=== PATIENT | female | born 1990 | race Asian ===

== ENCOUNTER 2019-11-18 20:13 | Emergency (ER) | payer BC ==
--- NOTE | 2019-11-18 21:22 | EDM.PDOC ---
ED HPI GENERAL MEDICAL PROBLEM - General Chief Complaint: General Stated Complaint: RIB PAIN Time Seen by Provider: 11/18/19 21:07 Source of Information: Reports: Patient, Significant Other (Boyfriend) History Limitations: Reports: No Limitations - History of Present Illness INITIAL COMMENTS - FREE TEXT/NARRATIVE: Ms. 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 She has had rhinorrhea, but no nasal congestion. No recent fever. No ear pain. She has been taking Mucinex without relief of symptoms. She now presents to the ED stating that she developed right rib pain today. She indicates her lateral right ribs, a few inches below her right axilla. She states that the pain is present all the time, but made worse with breathing or coughing. No prior similar symptoms. The patient states that she took 600 mg of ibuprofen around 13:30 today, which did not help much. The patient does not have a PCP. Her Racking Technician is Dr. Lisa Diana. She received an influenza vaccine this season. 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: Other (see below) Other Treatments BENDING ROLL OPERATOR: mucinex Right Chest Pain Score (Numeric/FACES): 8 - Related Data Allergies Allergy/AdvReac Type Severity Reaction Status Date / Time No Known Allergies Allergy Verified 11/18/19 20:48 Home Meds: Home Meds Orphenadrine [Norflex] 1 tab PO Q12H PRN #14 tab.er 11/19/19 [Rx] Past Medical History Musculoskeletal History: Reports: Other (See Below) (Scoliosis) - Past Surgical History HEENT Surgical History: Reports: Oral Surgery (wisdom teeth extraction) Social & Family History - Tobacco Use Smoking Status *Q: Never Smoker - Caffeine Use Caffeine Use: Reports: Soda - Alcohol Use Alcohol Use History: Yes Alcohol Use Frequency: Rarely - Recreational Drug Use Recreational Drug Use: No - Living Situation & Occupation Living situation: Reports: Single, with Significant Other (Boyfriend) 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 ED EXAM, GENERAL - Physical Exam Exam: See Below Exam Limited By: No Limitations General Appearance: Alert, WD/WN, No Apparent Distress Eye Exam: Bilateral Eye: EOMI, Normal Inspection Ears: Normal External Exam, Hearing Grossly Normal Nose: Normal Inspection Throat/Mouth: Normal Inspection, Normal Lips, Normal Voice, No Airway Compromise Head: Atraumatic, Normocephalic Neck: Normal Inspection, Full Range of Motion Respiratory/Chest: No Respiratory Distress, Lungs Clear, Normal Breath Sounds, No Accessory Muscle Use, Other (Reproducible tenderness to palpation of the 7th or 8th intercostal muscles, right midaxillary line). No: Decreased Breath Sounds, Crackles, Rhonchi, Wheezing, Stridor, Pleural Rub, Prolonged Expiration Cardiovascular: Normal Peripheral Pulses, Regular Rate, Rhythm, No Edema, No Gallop, No JVD, No Murmur, No Rub Peripheral Pulses: 4+: Radial (L), Radial (R) GI/Abdominal: Normal Bowel Sounds, Soft, Non-Tender, No Organomegaly, No Distention, No Abnormal Bruit, No Mass (Female) Exam: Deferred Rectal (Female) Exam: Deferred Back Exam: Normal Inspection, Full Range of Motion, NT Extremities: Normal Inspection, Normal Range of Motion, No Pedal Edema, Normal Capillary Refill Neurological: Alert, Oriented, Normal Cognition, No Motor/Sensory Deficits Psychiatric: Normal Affect Skin Exam: Warm, Dry, Intact, Normal Color, No Rash Course - Vital Signs Last Recorded V/S: Last Vital Signs Temp 37.1 C 11/18/19 20:43 Pulse 86 11/18/19 20:43 Resp 20 11/18/19 20:43 BP 129/90 11/18/19 20:43 Pulse Ox 99 11/18/19 20:43 - Orders/Labs/Meds Orders: Active Orders 24 hr Category Date Time Status Chest 2V [CR] Stat Exams 11/18/19 21:17 Taken Meds: Medications Discontinued Medications Generic Name Dose Route Start Last Admin Trade Name Freq PRN Reason Stop Dose Admin Orphenadrine Citrate 100 mg 11/19/19 00:19 11/19/19 00:28 Norflex PO 11/19/19 00:20 100 mg ONETIME STA Administration - Re-Assessments/Exams Free Text/Narrative Re-Assessment/Exam: 11/18/19 21:18 By both history and physical examination, the patient is suffering from right intercostal muscle spasm and pain, however, because of the patient's week long history of a cough, I have ordered a chest x-ray, not only to look for an infiltrate, but to rule out a pneumothorax. My suspicion is very low. 11/18/19 22:19 2-view chest radiograph reviewed. The cardiac silhouette is within normal limits. No pulmonary vascular congestion. No pleural effusions. No focal infiltrate. No pneumothorax. Significant thoracic scoliosis noted. Formal read per the Radiologist pending. 11/19/19 00:18 X-ray results discussed with the patient and her boyfriend. As above, I suspect that the patient is suffering from an intercostal muscle spasm due to her cough , which is likely due to a viral URI. I can't help her with her cough, but I can treat the muscle spasm with Norflex and ibuprofen. Departure - Departure Time of Disposition: 00:18 Disposition: Home, Self-Care 01 Condition: Good Clinical Impression: Intercostal muscle strain, Viral URI with cough - Discharge Information *PRESCRIPTION DRUG MONITORING PROGRAM REVIEWED*: Not Applicable *COPY OF PRESCRIPTION DRUG MONITORING REPORT IN PATIENT SHANE: Not Applicable Prescriptions: Orphenadrine [Norflex] 1 tab PO Q12H PRN #14 tab.er PRN Reason: Muscle Spasm Instructions: Muscle Strain, [id number], Upper Respiratory Infection, Adult, [id number] Referrals: PCP,None [Primary Care Provider] - Forms: ED Department Discharge, ED Return to Work/School Form Additional Instructions: You were seen in the emergency room for right rib pain after coughing for more than a week. Workup in the ER included a chest x-ray, which was unremarkable. You do not have pneumonia or a collapsed lung. Based on your history, physical exam, and ER chest x-ray, the cause of your right rib pain is most likely due to intercostal muscle spasm. You have been started on the muscle relaxant Norflex, and a prescription for Norflex has been sent to the [facility] located in the [employer] [facility]. Take one tablet of Norflex every 12 hours, starting this morning, Friday , 11/19/2019 as prescribed. In addition to Norflex, we recommend that you take [id number] ibuprofen, 2 -3 tablets (400-600 mg) every 8 hours, with food, around the clock for the next 2-3 days. If any other problems, please do not hesitate to return to the ER. Sepsis Event Note - Evaluation Sepsis Screening Result: No Definite Risk - Focused Exam Date Exam was Performed: 11/19/19 Time Exam was Performed: 18:37 - My Orders Last 24 Hours: My Active Orders 11/18/19 21:17 Chest 2V [CR] Stat - Assessment/Plan Last 24 Hours: My Active Orders 11/18/19 21:17 Chest 2V [CR] Stat
[2019-11-19] MEDS ORDERED: Orphenadrine 100 MG Tab.ER PO STA (00:19)
--- NOTE | 2019-11-21 17:48 | CR ---
Chest: Two views of the chest were obtained. Comparison: No prior chest imaging. Scoliosis is noted within the spine. Heart size and mediastinum are normal. Lungs are clear with no acute parenchymal change. No acute bony abnormality is appreciated. Impression: 1. Scoliosis. 2. Nothing acute is appreciated on two-view chest x-ray. Diagnostic code #2 This report was dictated in [place] Standard Time
== END 2019-11-19 00:31 | disposition home or self-care (01) ==
LOC: JD.ED 20:13
DX: S29.011A Strain of muscle and tendon of front wall of thorax, initial encounter (principal); J06.9 Acute upper respiratory infection, unspecified; X58.XXXA Exposure to other specified factors, initial encounter
CPT/HCPCS: 71046; 99283; A9270